=== PATIENT | female | born 1975 | race Caucasian/White ===

== ENCOUNTER 2017-05-05 10:11 | Emergency (ER) | payer BC, OTHER ==
[2017-05-05 10:22] VITALS: BP 105/70
[2017-05-05] MEDS ORDERED: Tetan/Diph/Pertus SYR(Tdap)* 0.5 ML SYR(BOOSTRIX) use SYR IM ONE (11:30)
--- NOTE | 2017-05-05 15:18 | UC ---
Anh Nova Thomas, scribed for Bertha Benjamin DO on 05/05/17 at 1144 . Skin Complaint HPI - HPI Summary HPI Summary: The pt is a 41 y/o F presenting to [facility] in need of a tetanus vaccination s/p stepping on a nail with her right heel yesterday. She was walking barefoot in her basement when she stepped on the nail. She does not think the nail travelled far into her foot. When asked about her pain level, she says not too bad. She denies any other symptoms. Her basement has normal grunginess, but she denies any factors that may greatly increase chance of infection. The patient says that it been almost seven years since her last tetanus vaccination. - History of Current Complaint Chief Complaint: UCGeneralIllness Stated Complaint: PUNCTURE WOUND TO FOOT Hx Obtained From: Patient Hx Last Menstrual Period: 04/30/17 Onset/Duration: Lasting Days - stepped on a nail yesterday, Still Present Skin Exposure Onset/Duration: Days Ago - stepped on a nail yesterday Timing: Constant Onset Severity: Mild Current Severity: Mild Location: Other - Heel of right foot Character: Pain Aggravating Factor(s): Nothing Alleviating Factor(s): Nothing Associated Signs & Symptoms: Positive: Negative Related History: Other: - Stepped on a nail yesterday - Allergy/Home Medications Allergies/Adverse Reactions: Allergies Allergy/AdvReac Type Severity Reaction Status Date / Time Latex Allergy Mild Rash Verified 05/05/17 10:18 Review of Systems Constitutional: Other - NEGATIVE: fever Musculoskeletal: Other: - Stepped on a nail yesterday All Other Systems Reviewed And Are Negative: Yes PMH/Surg Hx/FS Hx/Imm Hx Previously Healthy: No Cardiovascular History: Other Other Cardiovascular History: NEG: HTN Neurological History: Other Other Neurological History: CVA - Surgical History Surgical History: Yes Surgery Procedure, Year, and Place: gallbladder - Family History Known Family History: Negative: Diabetes, Respiratory Disease - Social History Alcohol Use: Weekly Alcohol Amount: 4-5 drinks weekly Substance Use Type: None Smoking Status (MU): Never Smoked Tobacco - Immunization History Most Recent Influenza Vaccination: see below Most Recent Tetanus Shot: 08/2010 Physical Exam Triage Information Reviewed: Yes Appearance: Well-Appearing, No Pain Distress, Well-Nourished Vital Signs: Initial Vital Signs Temp 99 F 05/05/17 10:19 Pulse 86 05/05/17 10:19 Resp 16 05/05/17 10:19 BP 105/70 05/05/17 10:19 Pulse Ox 100 05/05/17 10:19 Eyes: Positive: Conjunctiva Clear. Negative: Discharge ENT: Positive: Pharynx normal. Negative: Muffled/hoarse voice Neck exam: Normal Neck: Positive: Supple Respiratory: Positive: Lungs clear, Normal breath sounds, No respiratory distress, No accessory muscle use Cardiovascular: Positive: RRR, No Murmur Abdomen Description: Positive: Nontender, Soft. Negative: Distended, Guarding Bowel Sounds: Positive: Present Musculoskeletal Exam: Normal Musculoskeletal: Positive: Other: - no tran tenderness to calcaneous Neurological: Positive: Alert, Muscle Tone Normal Psychological Exam: Normal Psychological: Positive: Age Appropriate Behavior Skin Exam: Normal Skin: Positive: significant lesion(s) - There is evidence of a puncture wound on the heel of her right foot. There is no swelling, redness, calor, drainage, or any other signs of infection., Other - Warm, Dry, and Normal color Course/Dx - Course Course Of Treatment: The pt is a 41 y/o F presenting to [facility] in need of a tetanus vaccination s/p stepping on a nail with her right heel yesterday. She was walking barefoot in her basement when she stepped on the nail. She does not think the nail travelled far into her foot. When asked about her pain level, she says not too bad. She denies any other symptoms. Her basement has normal grunginess, but she denies any factors that may greatly increase chance of infection. The patient says that it been almost seven years since her last tetanus vaccination. Medications reviewed this visit. The patient was given a tetanus shot. Patient is diagnosed with puncture wound. Patient is stable and will be discharged home. Patient is agreeable to this plan. - Differential Diagnoses - Skin Complaint Differential Diagnoses: Cellulitis - Diagnoses Provider Diagnoses: Puncture wound to heel of right foot. Discharge - Discharge Plan Condition: Stable Disposition: HOME Patient Education Materials: Puncture Wound (ED), Diphtheria Tetanus and Pertussis Vaccine (ED) Referrals: Karla Langford [Primary Care Provider] - If Needed The documentation as recorded by the Anh clark Thomas accurately reflects the service I personally performed and the decisions made by Sourav ball Michelle A, DO.
== END 2017-05-05 12:22 | disposition home or self-care (01) ==
LOC: UCEAST 10:11
DX: S91.331A Puncture wound without foreign body, right foot, initial encounter (principal); W45.0XXA Nail entering through skin, initial encounter; Y92.018 Other place in single-family (private) house as the place of occurrence of the external cause; Z91.040 Latex allergy status
CPT/HCPCS: 90471; 90715; 99211; G0463